=== PATIENT | female | born 1995 | race African-American/Black ===

== ENCOUNTER 2018-12-01 03:06 | Emergency (ER) | payer SELFPAY ==
[2018-12-01] MEDS ORDERED: Acetaminophen 500 MG TAB ONE (03:48)
[2018-12-01] MEDS ORDERED: Acetaminophen/Codeine 30-300mg Tablet ONE (03:48)
== END 2018-12-01 04:10 | disposition home or self-care (01) ==
LOC: NAV ERS 03:06
DX: K08.89 Other specified disorders of teeth and supporting structures (principal); Z79.1 Long term (current) use of non-steroidal anti-inflammatories (NSAID)
CPT/HCPCS: 99282